=== PATIENT | female | born 1950 | race African-American/Black ===

== ENCOUNTER 2024-02-03 21:37 | Emergency (ER) | payer MEDICARE, OTHER, SELFPAY ==
[2024-02-03 22:24] LABS: Blood Urea Nitrogen 69 mg/dl (7-17); Calcium 8.2 mg/dl (8.4-10.2); Carbon Dioxide 19 mmol/L (22-30); Chloride 103 mmol/L (98-107); Glucose 111 mg/dl (70-99); Sodium 136 mmol/L (135-145); eGFR 3.46
--- NOTE | 2024-02-03 22:28 | ED.GENMED ---
History of Present Illness
General
Chief Complaint: Failure to Thrive
Source: patient
Exam Limitations: none
Time Seen by Provider: 02/03/24 21:51
Nursing documentation reviewed up to this point in time: agreed with
Travel History
Have you had any contact with someone who has COVID-19?: Unable to Answer
Do you have any symptoms of coronavirus? Fever > 100 degrees, chills, cough, shortness of breath, sore throat, loss of taste or smell, muscle aches, or headache?: Unable to Answer
History of Present Illness
History of Present Illness:
Pt with history of ESRD on HD (M,W,F), presents to ED from care home after she missed last 2 dialysis sessions. Pt denies fever. Denies sob. Denies nausea/vomiting. Denies loss of appetite. Denies abdominal pain. Pt denies having missed or
refused dialysis, but states that she was simply not taken to dialysis center.
Review of Systems
Review of Systems
Allergies reviewed?: Yes
All Other Systems: ROS reviewed and negative except as documented in HPI and ROS
Constitutional: Reports no symptoms
Respiratory: Reports no symptoms; Denies trouble breathing
Cardiac: Reports no symptoms
Musculoskeletal: Reports no symptoms
Skin: Reports no symptoms
Neurological: Reports no symptoms
Phy Exam
Physical Exam
Physical Exam:
Physical Exam
General: no apparent distress, not acutely ill. afebrile
Head: nc/at. eomi
Neck: supple. no meningeal signs.
Lungs: no acute respiratory distress. clear bilaterally
Abdomen: normal bowel sounds. not tender.
Neuro: alert and oriented. no focal neurological deficits
Skin: no rash
Psychiatric: well kept. interactive and cooperative
Extremities: no edema. no calf tenderness.
Course
Orders/Labs/Results
Orders:
Orders
02/03/24 22:04
BMP [Basic Metabolic Panel] Urgent
Abnormal Lab Results
02/03/24
22:04
Carbon Dioxide 19 L mmol/L
(22-30)
BUN 69 H mg/dl
(7-17)
Creatinine 10.6 H* mg/dL
(0.6-1.0)
Glucose 111 H mg/dl
(70-99)
Calcium 8.2 L mg/dl
(8.4-10.2)
02/03/24 21:59
02/03/24 22:04
Vital Signs
Initial and Last Documented VS:
Initial Vital Signs
Pulse Resp Pulse Ox
60 18 96
02/03/24 21:44 02/03/24 21:44 02/03/24 21:44
Last Documented Vital Signs
Pulse Resp Pulse Ox
60 18 96
02/03/24 21:44 02/03/24 21:44 02/03/24 21:44
MDM/Problems Addressed
MDM/Problems Addressed:
Potassium: 5.0
Patient remains afebrile, hemodynamically stable, without any evidence of volume overload. As such, do not feel the patient is in need of any acute dialysis session. Patient will be transferred back to care home for continual evaluation and
treatment, including potential dialysis tomorrow.
*Critical Care Note
Total Time (30-74mins, 75-104mins- exclusive of procedures): Not Applicable
ED Attending Note
-
Portions of this chart may have been created with voice recognition software.� Occasional wrong word or��sound alike� substitutions may have occurred due to the inherent limitations of voice recognition software.
Discharge Plan
Departure
Patient Disposition: Care Home/SNF
Date of Disposition: 02/03/24
Time of Disposition: 22:46
Discharge Problem:
Missed dialysis
Instructions: End-stage kidney disease (kidney failure)
Prescriptions:
No Action
atorvastatin 40 mg Tablet
40 mg PO HS
acetaminophen 325 mg Tablet
650 mg PO Q6H PRN (Reason: mild pain/temp>100.4)
cetirizine 10 mg Tablet
10 mg PO DAILY
citalopram 10 mg Tablet
5 mg PO DAILY
loperamide [Imodium A-D] 2 mg Tablet
2 mg PO Q12H PRN (Reason: diarrhea)
cyanocobalamin (vitamin B-12) 1,000 mcg Tablet
1,000 mcg PO QPM
amlodipine 5 mg Tablet
5 mg PO DAILY
magnesium hydroxide [Milk of Magnesia] 400 mg/5 mL Suspension
30 ml PO HS PRN (Reason: if no bm in 3 days)
bisacodyl 10 mg Suppository
10 mg [place] DAILY PRN (Reason: if no results for MOM)
aspirin 81 mg Tablet,Chewable
81 mg PO DAILY
ondansetron 4 mg Tablet,Disintegrating
4 mg PO Q6H PRN (Reason: nausea/vomiting)
calcium acetate(phosphat bind) 667 mg Capsule
667 mg PO MEALS
cholecalciferol (vitamin D3) 25 mcg (1,000 unit) Tablet
25 mcg PO QPM
Lokelma 5 gram Powder In Packet
5 g PO DAILY
Pepto-Bismol
30 ml PO Q12H PRN (Reason: indigestion/heartburn)
Activity Restrictions/Additional Instructions:
As discussed, you are being transferred back to nursing for continuation of treatment, including scheduled dialysis.
Interventions
Interventions:
*Risk Screen - Suicide Last Done: 02/03/24 21:46
*General Assessment Last Done: 02/03/24 21:46
*Neglect/Abuse Screening Last Done: 02/03/24 21:46
ED- Fall Risk Assessment Last Done: 02/03/24 23:43
*ED COVID-19 Vaccine History Last Done: 02/03/24 21:46
*Nursing Disposition Last Done: 02/04/24 01:32
Discharge Date and Time
Discharge Date/Time: 02/04/24 01:33
Print Language: BENGALI
== END 2024-02-04 01:33 ==
LOC: EMR 21:37
PROVIDERS: EMERGENCY PHYSICIAN Emergency Medicine; FAMILY PHYSICIAN Internal Medicine
DX: N18.6 End stage renal disease (principal); Z91.158 Patient's noncompliance with renal dialysis for other reason; Z99.2 Dependence on renal dialysis
CPT/HCPCS: 80048; 99283

== ENCOUNTER 2024-02-10 18:56 | Observation (INO) | payer MEDICARE, OTHER, SELFPAY ==
[2024-02-10 16:22] VITALS: BP 189/63
[2024-02-10 17:00] VITALS: BP 161/51
--- NOTE | 2024-02-10 17:31 | ED.GENMED ---
History of Present Illness
General
Chief Complaint: Failure to Thrive
Source: ambulance crew
Exam Limitations: none
Time Seen by Provider: 02/10/24 16:22
Nursing documentation reviewed up to this point in time: agreed with
History of Present Illness
History of Present Illness:
The patient is a 73-year-old female who arrives from [facility] by ambulance after she refused dialysis again. According to the nursing staff at [facility], the patient has now refused dialysis 4 times. However, the patient's
family would like her to get dialysis. The patient was evaluated in our emergency department a week ago for the same scenario. The patient is a vague historian. She is oriented to herself only. She appears agitated. She denies pain. I
personally called and spoke to the patient's son, Papito, who reports that he was expecting his mom to be hospitalized at [facility]. He expresses that he adamantly wants his mom dialyzed.
Past History
Past History
ED Past Medical History: CHF, HTN, Hypercholesterolemia, Renal failure and Other (Dementia)
ED Past Surgical History: Other
Social History
Tobacco: Other
Alcohol: Other
Drug: Other
Personal: Other
Living: correction
Employment: Other
Family History
Family History: Other
Review of Systems
Review of Systems
Allergies reviewed?: Yes
Unable to obtain full review of systems at this time due to: dementia
Other source history: family (Son, Papito) and correction
All Other Systems: Not applicable
Phy Exam
Physical Exam
Physical Exam:
Physical Exam
General: no apparent distress, not acutely ill
Neck: supple. no meningeal signs. normal psoterior pharynx
Heart: s1/s2 regular rate and rhythm, no murmur. equal radial pulses.
Lungs: no acute respiratory distress. clear bilaterally
Abdomen: normal bowel sounds. not tender. no CVAT
Neuro: Oriented to self only
Skin: no rash
Psychiatric: Barely interactive. Agitated
Extremities: no edema. no calf tenderness. negative homans. good distal pulses
Course
Orders/Labs/Results
Orders:
Orders
02/10/24 17:58
Complete Blood Count/With Diff Urgent
Comprehensive Metabolic Panel Urgent
02/10/24 18:28
Electrocardiogram (*1) Urgent
Reason for Study: Fatigue / Weakness
EKG- Treatment ONCE
02/10/24 18:40
Admit/Transfer Patient As Directed
Co-Sign Provider:
Level of Care: Observation services
Assign to:: Telemetry
Physician / Group: nasrin
Diagnosis: esrd
Reason for Telemetry: Arrhythmia
Date to Stop Telemetry: 02/13/24
Time to Stop Telemetry: 11:00
02/10/24 18:41
Code Status As Directed
Resuscitation Status: Full Code
02/10/24 18:43
Sodium Bicarbonate 50 meq IV NOW STA
02/13/24 11:00
DC Protocol for Telemetry ONCE
Abnormal Lab Results
02/10/24
17:58
WBC 3.2 L 10^3/uL
(4.8-10.8)
RBC 3.57 L 10^6/uL
(4.20-5.40)
Hgb 10.8 L g/dL
(12.0-16.0)
Hct 31.4 L %
(37.0-47.0)
RDW 15.6 H %
(11.5-14.5)
MPV 12.2 H fL
(7.4-10.4)
Absolute Lymphs (auto) 0.9 L 10^3/uL
(1.2-3.4)
Monocytes % 11.9 H %
(1.7-9.3)
Potassium 5.3 H mmol/L
(3.5-5.1)
Carbon Dioxide 10 L* mmol/L
(22-30)
BUN 127 H* mg/dl
(7-17)
Creatinine 19.7 H* mg/dL
(0.6-1.0)
02/10/24 17:58
02/10/24 17:58
Vital Signs
Initial and Last Documented VS:
Initial Vital Signs
Temp Pulse Resp Pulse Ox
97.5 F 61 15 98
02/10/24 16:20 02/10/24 16:20 02/10/24 16:20 02/10/24 16:20
Last Documented Vital Signs
Temp Pulse Resp BP Pulse Ox
97.5 F 65 23 161/51 98
02/10/24 16:20 02/10/24 18:00 02/10/24 18:00 02/10/24 17:00 02/10/24 16:20
MDM/Problems Addressed
Differential Diagnosis Includes:
Hyperkalemia, fluid overload due to noncompliance with dialysis, acidosis
MDM/Problems Addressed:
Patient presents with failure to comply with dialysis
Chronic conditions affecting care: Kidney disease
Acute Exacerbation and/or Progression of Chronic Illness: Kidney disease
*Radiology
Radiology exam reviewed: preliminary read by ED provider
*Pulse Oximetry
Patient hypoxic: no
*Coal Pulverizing Operator Interpretation
Rate: normal
Interpretation: normal
Rhythm: sinus
*Critical Care Note
Total Time (30-74mins, 75-104mins- exclusive of procedures): Not Applicable
Data Reviewed
Review of Other/Old Records Reveals: Labs (Carbon dioxide on 02/03/2024 was 19)
Source: family (Spoke to patient's son over the phone, Papito Kohli) and correction (Spoke to correction nurse)
Patient Management
Discussion with other providers: Hospitalist
Escalation/DeEscalation of care consider admission/obs:
Given patient has increased acidosis due to noncompliance with dialysis, decision made to admit the patient for likely dialysis. Nephrology and hospitalist made aware
ED Attending Note
-
Portions of this chart may have been created with voice recognition software.� Occasional wrong word or��sound alike� substitutions may have occurred due to the inherent limitations of voice recognition software.
Discharge Plan
Departure
Patient Disposition: Admit
Date of Disposition: 02/10/24
Time of Disposition: 18:27
Admit to: Med/Surg
Presentation/result/management discussed w/ accepting MD/DO: Hospitalist
Patient with high blood pressure during this ER visit?: Yes
Condition: Fair
Covid-19: Not Applicable
Discharge Problem:
Metabolic acidosis, Non-compliance with renal dialysis
Interventions
Interventions:
*Risk Screen - Suicide Last Done: 02/10/24 16:20
*General Assessment Last Done: 02/10/24 16:20
ED- Fall Risk Assessment Last Done: 02/10/24 17:25
[2024-02-10 18:04] LABS: % Basophils 1.3 % (0-2); % Eosinophils 1.6 % (0-6); % Immature Granulocytes 0.3 % (0-0.5); % Lymphocytes 26.7 % (20.5-51.1); % Monocytes 11.9 % (1.7-9.3); % Neutrophils 58.2 % (42.2-75.2); Absolute Eosinophils 0.1 10^3/uL (0-0.7); Absolute Lymphocytes 0.9 10^3/uL (1.2-3.4); Absolute Monocytes 0.4 10^3/uL (0.1-0.6); Absolute Neutrophils 1.9 10^3/uL (1.4-6.5); Hematocrit 31.4 % (37.0-47.0); Hemoglobin 10.8 g/dL (12.0-16.0); Mean Corp Hgb Conc. 34.4 g/dL (33.0-37.0); Mean Corpuscular Hgb 30.3 pg (27.0-31.0); Mean Platelet Volume 12.2 fL (7.4-10.4); Nucleated Red Blood Cells % 0 %; Platelet Count 178 10^3/uL (130-400); Red Blood Cell Count 3.57 10^6/uL (4.20-5.40); Red Cell Dist. Width 15.6 % (11.5-14.5); White Blood Cell Count 3.2 10^3/uL (4.8-10.8)
[2024-02-10 18:24] LABS: ALT (SGPT) 13 U/L (0-35); AST (SGOT) 19 U/L (14-36); Albumin 4.1 g/dl (3.5-5.0); Alkaline Phosphatase 80 U/L (38-126); Calcium 8.9 mg/dl (8.4-10.2); Carbon Dioxide 10 mmol/L (22-30); Chloride 107 mmol/L (98-107); Glucose 73 mg/dl (70-99); Potassium 5.3 mmol/L (3.5-5.1); Sodium 142 mmol/L (135-145); Total Bilirubin 0.6 mg/dl (0.2-1.3); Total Protein 6.4 g/dl (6.3-8.2)
[2024-02-10 18:36] LABS: Blood Urea Nitrogen 127 mg/dl (7-17); eGFR 1.64
--- NOTE | 2024-02-10 18:43 | HPS.HSE ---
Family Physician
-
Family Physician: Preston Cain
Chief Complaint
-
missed dialysis
History of Present Illness
73-year-old female past medical history of ESRD on hemodialysis, anemia, dementia, hypertension, presenting from [facility] for dialysis. She has refused dialysis and missed her last 4 dialysis sessions. Family adamantly wants her to get
dialyzed.
Patient denies any complaints. She denies any chest pain, shortness of breath, lower extremity edema, nausea or vomiting or diarrhea.
When asked why she has not been receiving dialysis she states that she has been going to dialysis. She reports that she has been taking her medications although history unreliable.
She denies smoking or alcohol use.
Medical History
Past Medical History
Past Medical History: Reports Other (ESRD on hemodialysis, anemia, dementia, hypertension,)
Past Surgical History: Reports None
Social History
Tobacco: Non-smoker
Alcohol: None
Drug: None
Family History
Family History: Not pertinent
Allergies / Home Medications
Allergies reflects when Allergies were last updated in [employer].
Home Medications with original date entered in [employer]
Allergy/Medication List:
Home Medications
Pepto-Bismol 30 ml PO Q12H PRN indigestion/heartburn 02/03/24
acetaminophen 325 mg tablet 650 mg PO Q6H PRN mild pain/temp>100.4 02/03/24
amlodipine 5 mg tablet 5 mg PO DAILY 02/03/24
aspirin 81 mg chewable tablet 81 mg PO DAILY 02/03/24
atorvastatin 40 mg tablet 40 mg PO HS 02/03/24
bisacodyl 10 mg rectal suppository 10 mg [place] DAILY PRN if no results for MOM 02/03/24
calcium acetate(phosphat bind) 667 mg capsule 667 mg PO MEALS 02/03/24
cetirizine 10 mg tablet 10 mg PO DAILY 02/03/24
cholecalciferol (vitamin D3) 25 mcg (1,000 unit) tablet 25 mcg PO QPM 02/03/24
citalopram 10 mg tablet 5 mg PO DAILY 02/03/24
cyanocobalamin (vitamin B-12) 1,000 mcg tablet 1,000 mcg PO QPM 02/03/24
loperamide 2 mg tablet (Imodium A-D) 2 mg PO Q12H PRN diarrhea 02/03/24
magnesium hydroxide 400 mg/5 mL oral suspension (Milk of Magnesia) 30 ml PO HS PRN if no bm in 3 days 02/03/24
ondansetron 4 mg disintegrating tablet 4 mg PO Q6H PRN nausea/vomiting 02/03/24
sodium zirconium cyclosilicate 5 gram oral powder packet (Lokelma) 5 g PO DAILY 02/03/24
omeprazole 20 mg tablet,delayed release 20 mg PO DAILY 02/10/24
Review of Systems
-
History Source: Patient
A 12 point ROS was completed and negative except as noted: Yes
Constitutional: Reports No Symptoms
EENT: Reports No Symptoms
Respiratory: Reports No Symptoms
Cardiac: Reports No Symptoms
Abdomen/GI: Reports No Symptoms
: Reports No Symptoms
Musculoskeletal: Reports No Symptoms
Skin: Reports No Symptoms
Neurological: Reports No Symptoms
Endocrine: Reports No Symptoms
Hematologic/Lymphatic: Reports No Symptoms
Psych: Reports No Symptoms
Physical Exam
Vital Signs
Vital Signs
Temp Pulse Resp BP Pulse Ox
97.5 F 65 23 161/51 98
02/10/24 16:20 02/10/24 18:00 02/10/24 18:00 02/10/24 17:00 02/10/24 16:20
Physical Exam
General: Well Developed, Well Nourished and No Apparent Distress
HEENT: NormoCephalic, Moist mucous membranes and Atraumatic
Respiratory: Clear
Cardiac: S1/S2 and Regular Rhythm; No Murmur or Rub
GI: Soft, Non Tender, Non Distended and Normal Bowel Sounds; No Organomegaly
Rectal: Deferred by Provider
Musculoskeletal: No Clubbing, No Cyanosis and No Edema
Skin: No Rash
Neuro: Nonfocal/grossly intact
Laboratory Results
-
02/10/24 17:58
02/10/24 17:58
Laboratory Results
Total Bilirubin 0.6 mg/dl (0.2-1.3) 02/10/24 17:58
AST 19 U/L (14-36) 02/10/24 17:58
ALT 13 U/L (0-35) 02/10/24 17:58
Alkaline Phosphatase 80 U/L (38-126) 02/10/24 17:58
Data Reviewed
-
Lab Data: Labs Reviewed by me
Old Records: Reviewed
Impression/Plan
-
IMPRESSION:
PLAN:
# Anion gap metabolic acidosis secondary to refusal of dialysis sessions
# ESRD on hemodialysis
# Mild hyperkalemia
-Does not appear volume overloaded on examination, asymptomatic
-Bicarb of 10
-Bicarb push 50 meq given
-Nephrology will try for dialysis tomorrow if patient agreeable
-Continue calcium
-Continue Lokelma
Chronic anemia renal disease
-Hemoglobin 10.8
Dementia
-Continue citalopram
Essential hypertension
-Continue amlodipine
-Continue prophylactic aspirin, statin
GERD
-Continue omeprazole
Full code
DVT prophylaxis�heparin
Renal diet
[2024-02-10] MEDS: SODIUM BICARBONATE 50 MEQ IV (18:53)
[2024-02-10] MEDS: ATIVAN 1 MG IV (19:11)
[2024-02-10 20:05] VITALS: BP 168/60; BMI 19.7
[2024-02-10] MEDS: HEPARIN 5000 UNITS SC (21:20)
--- NOTE | 2024-02-10 21:30 | PTCARENOTE ---
Pt was admitted to floor from ED. Pt is nonverbal at present, does not answer any questions. Pt is in B/L soft limb restraints. VSS. SB on the monitor. Pt is calm at present. Will continue with ongoing plan of care.
[2024-02-10 23:31] VITALS: BP 167/62
[2024-02-11 03:27] VITALS: BP 171/63
[2024-02-11 06:00] VITALS: BMI 19.7
--- NOTE | 2024-02-11 06:35 | PTCARENOTE ---
Pt awake yelling, confused, pulling at B/L wrist restraints, tele leads and monitor and managed to pull out IV site. Pt continuing to yell and attempting to hit staff. SALTY Lundy notified and order received for IM Ativan. After repositioning
pt and adjusting restraints and tele monitor pt is now asleep.
[2024-02-11 07:09] VITALS: BP 165/59
[2024-02-11 07:40] LABS: % Basophils 1.6 % (0-2); % Eosinophils 3.1 % (0-6); % Immature Granulocytes 0.4 % (0-0.5); % Lymphocytes 25.6 % (20.5-51.1); % Monocytes 9.3 % (1.7-9.3); Absolute Eosinophils 0.1 10^3/uL (0-0.7); Absolute Lymphocytes 0.7 10^3/uL (1.2-3.4); Absolute Monocytes 0.2 10^3/uL (0.1-0.6); Absolute Neutrophils 1.6 10^3/uL (1.4-6.5); Hematocrit 29.2 % (37.0-47.0); Hemoglobin 10.1 g/dL (12.0-16.0); Mean Corp Hgb Conc. 34.6 g/dL (33.0-37.0); Mean Corpuscular Hgb 30.3 pg (27.0-31.0); Mean Corpuscular Volume 87.7 fL (81.0-99.0); Mean Platelet Volume 12.4 fL (7.4-10.4); Nucleated Red Blood Cells % 0 %; Platelet Count 172 10^3/uL (130-400); Red Blood Cell Count 3.33 10^6/uL (4.20-5.40); Red Cell Dist. Width 15.6 % (11.5-14.5); White Blood Cell Count 2.6 10^3/uL (4.8-10.8)
[2024-02-11 08:22] LABS: ALT (SGPT) 12 U/L (0-35); AST (SGOT) 19 U/L (14-36); Albumin 3.7 g/dl (3.5-5.0); Alkaline Phosphatase 72 U/L (38-126); Blood Urea Nitrogen 130 mg/dl (7-17); Calcium 8.6 mg/dl (8.4-10.2); Carbon Dioxide 12 mmol/L (22-30); Chloride 108 mmol/L (98-107); Estimated Creatinine Clearance 2 ml/min; Glucose 49 mg/dl (70-99); Potassium 5.2 mmol/L (3.5-5.1); Sodium 144 mmol/L (135-145); Total Bilirubin 0.6 mg/dl (0.2-1.3); Total Protein 5.9 g/dl (6.3-8.2); eGFR 1.57
[2024-02-11] MEDS: DEXTROSE 50% SYRINGE 25 GRAMS IV (08:30)
--- NOTE | 2024-02-11 08:30 | PTCARENOTE ---
0830 LAB glucose 49. Physician notified, D50 25G iv given. Patient combative, spitting, screaming. Two staff were needed to hold patient's arm for IV D50 to be administered.
--- NOTE | 2024-02-11 09:00 | PTCARENOTE ---
Patient refusing all PO meds, patient refusing to eat. Patient only wants water.
--- NOTE | 2024-02-11 10:37 | W.PN.HOSP.TC ---
Today's Communication/Plan
-
Await son to call back. Pateint is not eating , taking meds, Letting mew touch her or Do HD
Assessment / Plan
Assessment / Plan
68-year-old female with missed dialysis. She refused dialysis and missed 4 sessions.
She has been refusing to take medicines eat or drink. She also does not want to be touched.
She asks me to 'go away' and swats you away.
Does not converse or make eye contact.
No facial droop noted
Let me touch her.
moving all extremities.
Does not follow directions
# Missed hemodialysis when patient performs
Anion gap metabolic acidosis secondary to above with mild hypokalemia
Bicarb given
Nephrology consulted for dialysis
Continue Lokelma
# Chronic anemia secondary to CKD
# Mild leukopenia
# Advanced dementia-Check CT Brain
# Hypertension-continue amlodipine
# Hyperlipidemia-continue statin
# GERD-continue PPI IV
# Anxiety and depression-citalopram
# DVT prophylaxis-subcutaneous heparin
# CODE STATUS-full code
Discussed with nephrology. Patient does not let dialysis nurse to dialysis. It can be dangerous if she bleeds.
I have called and left a message for patient's son to call back.
Discussed with nursing.
Anticipated Discharge: > 48 hours
Subjective/Interval History
-
Date of Service: February 11, 2024
Objective Data
-
Labs:
Laboratory Results
02/11/24
06:45
WBC 2.6 L
Hgb 10.1 L
Hct 29.2 L
Plt Count 172
Sodium 144
Potassium 5.2 H
Chloride 108 H
Carbon Dioxide 12 L*
BUN 130 H*
Creatinine 20.5 H*
Glucose 49 L*
Calcium 8.6
Total Bilirubin 0.6
AST 19
ALT 12
Alkaline Phosphatase 72
Vital Signs:
Vital Signs
Temp Pulse Resp BP Pulse Ox
97.3 F 59 17 171/63 96
02/11/24 03:27 02/11/24 03:27 02/11/24 03:27 02/11/24 03:27 02/11/24 03:27
I&O
02/10/24 02/11/24 02/12/24
06:59 06:59 06:59
Intake Total 120 / 120
Balance 120 / 120
[2024-02-11] MEDS: HEPARIN 5000 UNITS SC (10:50)
[2024-02-11 10:54] LABS: Glucose - Point of Care 78 mg/dl (70-99)
[2024-02-11 11:11] VITALS: BP 156/84
--- NOTE | 2024-02-11 11:58 | W.PN.UPDATE ---
Addendum entered and electronically signed by Cherri Sylvester MD 02/11/24 12:01:
Nephrology saw patient after me and discussed with the son he wants hospice. I will consult hospice. Cancel CAT scan
Original Note:
Update Note
Progress Note Update
met with son at bed side.
Reviewed about patient refusing treatments, to eat and also dialysis.
He stated that he understands that. He also told the patient that she will if she keeps refusing about.
CODE STATUS addressed and he made her a DNR
total time spent over 55 min
--- NOTE | 2024-02-11 12:00 | PTCARENOTE ---
Patient's son at bedside@ 1130. Patient and son yelling at each other. Son is now sitting outside of the patient's room, Physicians notified. Patient @ 1200 became combative, removed restraints by bending over and using her teeth. Patient removed
tele, threw it at nurse and then used the tele wires to hit staff. Patient climbed out of bed, kicking and spitting. It took four staff members to lift patient back into bed and replace restraints. IV order for Haldol obtained, but patient used her
teeth to rip out her IV from her left upper arm! Medsitter requested and bed alarm maintained. Patient's son left.
--- NOTE | 2024-02-11 13:24 | CM ---
Addendum entered by Geri Rodrigez 02/11/24 13:53:
[employer] letter provided to patient and son not signed.
Original Note:
manager of tax reviewed patient's chart and met with patient and son, patient with restraints and medsitter, call placed to admissions at [facility] to see how long patient has been at facility and message left. Per patient's son patient was receiving HD
at [facility] but lately patient has been refusing, per nursing patient is not eating, taking medications, patient was placed in restraints. manager of tax received a consult for hospice, case management associate spoke with patient's son and reviewed hospice
options and he has selected [facility], referral sent to [facility].
PCP: Dr. Cain
Plan; Referral sent to [facility] and message left with admissions at [facility] to discuss patient's previous level of functioning.
--- NOTE | 2024-02-11 14:26 | HOSPNOTE ---
Referral received. Called and spoke to patients son Papito. He was under the impression that patient would be admitted inpatient hospice. He expressed that he did not want patient returning to [facility]. He if anything wanted patient to go somewhere closer
to her family and hometown which is [place] if family who is coming to visit this evening agrees. Discussed with attending and CM. Will be difficult to find facility accepting of patient with behaviors of agitation and currently in restraints. Will
reassess tomorrow for the eligibility of inpatient hospice and then discuss further with son. CM and Attending updated.
--- NOTE | 2024-02-11 14:27 | W.CON.NEPH ---
Consultation
-
Date/Time Consultation Requested: 02/10/2024 19:43PM
Date/Time Consultation Performed: 02/11/2024 2:31PM
Requesting Provider: Benjamin Sullivan
Performing Provider: Manda Coleman
Reason for Consultation: ESRD on HD
Medical History
-
Chief Complaint: ESRD on HD
History of Present Illness:
Ms. Kohli is a 73YOF with PMH of ESRD on HD, anemia, dementia, HTN who presents from [facility] in the setting of missed dialysis. For hypertension, she is maintained on amlodipine. She does have problems with nausea for with she takes Lokelma.
The patient has been refusing dialysis for the past 4 sessions but family was insistent that she come to the hospital for dialysis. Today, she continues to refuse dialysis and was aggressive with bedside nurse as well as myself. The patient did spit
on me when I went to discuss dialysis toay.
Past Medical History
ESRD on hemodialysis, anemia, dementia, hypertension
Past Surgical History: None
Social History
Tobacco: Non-Smoker
Alcohol: None
Drug: None
Living: Jail
Family History
Family History: Not Pertinent
Allergies / Home Medications
Allergy/AdvReac Type Severity Reaction Status Date / Time
amlodipine Allergy Unknown Verified 02/10/24 18:50
�Medication �Instructions �Recorded �Confirmed �Type
Pepto-Bismol 30 ml PO Q12H PRN 02/03/24 02/10/24 History
indigestion/heartburn
acetaminophen 325 mg tablet 650 mg PO Q6H PRN mild 02/03/24 02/10/24 History
pain/temp>100.4
amlodipine 5 mg tablet 5 mg PO DAILY 02/03/24 02/10/24 History
aspirin 81 mg chewable tablet 81 mg PO DAILY 02/03/24 02/10/24 History
atorvastatin 40 mg tablet 40 mg PO HS 02/03/24 02/10/24 History
bisacodyl 10 mg rectal suppository 10 mg DE DAILY PRN if no results 02/03/24 02/10/24 History
for MOM
calcium acetate(phosphat bind) 667 667 mg PO MEALS 02/03/24 02/10/24 History
mg capsule
cetirizine 10 mg tablet 10 mg PO DAILY 02/03/24 02/10/24 History
cholecalciferol (vitamin D3) 25 25 mcg PO QPM 02/03/24 02/10/24 History
mcg (1,000 unit) tablet
citalopram 10 mg tablet 5 mg PO DAILY 02/03/24 02/10/24 History
cyanocobalamin (vitamin B-12) 1,000 mcg PO QPM 02/03/24 02/10/24 History
1,000 mcg tablet
loperamide 2 mg tablet (Imodium 2 mg PO Q12H PRN diarrhea 02/03/24 02/10/24 History
A-D)
magnesium hydroxide 400 mg/5 mL 30 ml PO HS PRN if no bm in 3 days 02/03/24 02/10/24 History
oral suspension (Milk of Magnesia)
ondansetron 4 mg disintegrating 4 mg PO Q6H PRN nausea/vomiting 02/03/24 02/10/24 History
tablet
sodium zirconium cyclosilicate 5 5 g PO DAILY 02/03/24 02/10/24 History
gram oral powder packet (Lokelma)
omeprazole 20 mg tablet,delayed 20 mg PO DAILY 02/10/24 02/10/24 History
release
Review of Systems
-
Unable to obtain full review of systems at this time due to: Dementia
History Source: Patient and Family
All other systems: Negative unless noted
Constitutional: Fatigue
Physical Exam
Vital Signs
Vital Signs
Temp Pulse Resp BP Pulse Ox
97.6 F 65 20 156/84 93
02/11/24 07:09 02/11/24 11:11 02/11/24 11:11 02/11/24 11:11 02/11/24 11:11
Lab Results
WBC 2.6 10^3/uL (4.8-10.8) L 02/11/24 06:45
RBC 3.33 10^6/uL (4.20-5.40) L 02/11/24 06:45
Hgb 10.1 g/dL (12.0-16.0) L 02/11/24 06:45
Hct 29.2 % (37.0-47.0) L 02/11/24 06:45
Plt Count 172 10^3/uL (130-400) 02/11/24 06:45
Sodium 144 mmol/L (135-145) 02/11/24 06:45
Potassium 5.2 mmol/L (3.5-5.1) H 02/11/24 06:45
Chloride 108 mmol/L (98-107) H 02/11/24 06:45
Carbon Dioxide 12 mmol/L (22-30) L* 02/11/24 06:45
BUN 130 mg/dl (7-17) H* 02/11/24 06:45
Creatinine 20.5 mg/dL (0.6-1.0) H* 02/11/24 06:45
eGFR 1.57 02/11/24 06:45
Glucose 49 mg/dl (70-99) L* 02/11/24 06:45
Calcium 8.6 mg/dl (8.4-10.2) 02/11/24 06:45
Albumin 3.7 g/dl (3.5-5.0) 02/11/24 06:45
Physical Exam
General: Awake and Other (no oriented to time or place)
HEENT: PERRL, EOMI, Anicteric, Conjunctivae Clear, Ear/Nose Intact, Hearing Normal, Oropharynx Clear/Moist and Facial Symmetry
Respiratory: Nonlabored Respirations
Cardiac: No Edema
Breast: Deferred by me
Abdomen: Soft and Nontender
Rectal: Deferred by Provider
Musculoskeletal: No Clubbing, No Cyanosis and No Edema
Skin: Other (rash noted on some joints)
Neuro: Nonfocal/Grossly Intact
Hematologic/Lymphatic: No Cervical Lymphadenopathy
Psych: Mood/afflect pleasant
Vascular Access: AVF
Data Reviewed
-
Labs: Labs Reviewed by me, Discussed with Physician, Discussed with Nurse and Discussed with Family
Old Records: Reviewed
Assessment/Plan
-
ESRD on HD (currently refusing)
AGMA
Mild hyperK
Plan:
- discussed with family. i reiterated that it would be unsafe to compelte dialysis on a combative patient, particularly since we would be placing needles for access. she is at extremely high risk of bleeding. at this time, they understand the risks
and decided to pursue hospice since the patient no longer wants dialysis
- fortunately, volume status seesm stable
- noted to have severe refractory acidosis, continue to monitor
- mild hyperK noted, okay for rosyca to continue
- hospice consult
[2024-02-11] MEDS: NORVASC PO (14:43)
[2024-02-11] MEDS: PHOSLO PO ×2 (14:43)
[2024-02-11] MEDS: NORVASC 5 MG PO (16:59)
[2024-02-11 17:00] VITALS: BP 171/51
[2024-02-11] MEDS: PHOSLO 667 MG PO (17:00)
[2024-02-11] MEDS: TYLENOL 650 MG PO (17:00)
[2024-02-11] MEDS: VITAMIN B-12 1000 MCG PO (17:00)
[2024-02-11] MEDS: VITAMIN D3 (cholecalciferol) 25 MCG PO (17:00)
[2024-02-11 17:10] LABS: Glucose - Point of Care 64 mg/dl (70-99)
[2024-02-11 18:04] LABS: Glucose - Point of Care 72 mg/dl (70-99)
[2024-02-11] MEDS: HEPARIN SC (19:38)
--- NOTE | 2024-02-12 00:19 | PTCARENOTE ---
Pt agitated, refusing vital signs, medication and food or drink. Was able to ambulate to bathroom with assistance. Bed alarm intact with soft limb restraints and med sitter maintained.
[2024-02-12 06:00] VITALS: BMI 19.7
--- NOTE | 2024-02-12 06:11 | W.PN.HOSP.TC ---
Today's Communication/Plan
-
start comfort measures
discharge to inpatient hospice
Assessment / Plan
Assessment / Plan
Physical Exam
Refusing examination
68-year-old female with missed dialysis. She refused dialysis and missed 4 sessions. Refusing medication and food.
# Missed hemodialysis when patient performs
Anion gap metabolic acidosis secondary to above with mild hypokalemia
Bicarb given
Nephrology consult appreciated not safe to continue with dialysis patient uncooperative agitation risk of bleeding high
Continued Lokelma however patient refusing medications
# Chronic anemia secondary to CKD
# Mild leukopenia
# Advanced dementia
# Hypertension-continued amlodipine, patient refused
# Hyperlipidemia-continue statin, patient refused
# GERD- protonix continued, patient refused
# Anxiety and depression-citalopram, patient refused
# CODE STATUS- DNR as per sang Cobos. Patient confused likely terminal delirium does not have capacity to make her own medical decisions at this time.
02/11 Goals of Care: discussed with hospice and patient's son MALATHI Cobos regarding poor prognosis, likely terminal delirium, patient likely to deteriorate soon refusing dialysis, meds, and food. Patient appropriate for [facility] hospice, patient's son
Papito in agreement with pursuing plans to sign patient on to [facility] hospice by 2pm today. Patient' son also in agreement with pursuing comfort care and consented to start prior to signing. Sang SERVIN aware, as part of comfort care measures, all
medications/treatments/tests(including accucheks) that may prolong patient's life, or simply do not add to quality of life, would be discontinued in favor of measures/treatments/medications to maximize patient's quality of life in her remaining
time. Care updated to comfort measures as per sang SERVIN's wishes. Patient herself confused/agitated does not have capacity to make medical decisions at this time.
I spent a total of 50 minutes with the patient or on the floor. More than 50% of this time involved counseling and coordination of care.
Anticipated Discharge: Today
Subjective/Interval History
-
Date of Service: February 12, 2024
No acute distress resting comfortably in bed sleeping at time of evaluation. Day's events notable for confusion agitation refusing to eat or take oral medications.
Objective Data
-
Vital Signs:
Vital Signs
Temp Pulse Resp BP Pulse Ox
97.6 F 63 16 171/51 96
02/11/24 07:09 02/11/24 17:00 02/11/24 17:00 02/11/24 17:00 02/11/24 17:00
I&O
02/10/24 02/11/24 02/12/24
06:59 06:59 06:59
Intake Total 120 / 120
Balance 120 / 120
[2024-02-12 07:13] VITALS: BP 123/75
[2024-02-12 09:07] LABS: Glucose - Point of Care 47 mg/dl (70-99)
--- NOTE | 2024-02-12 10:19 | HOSPNOTE ---
Patient will be admitted today as inpatient hospice. Patient has refused dialysis, refused food and water. Patient is extremely agitated and will need to remain inpatient for the management of agitation that could not be managed in the outpatient
setting. Son will meet at hospice at 2 pm to sign consents. Attending, CM, and primary nurse aware. Admissions notified and requested a bed on [address] as well.
[2024-02-12] MEDS: HEPARIN SC (10:31)
[2024-02-12] MEDS: NORVASC PO (10:32)
[2024-02-12] MEDS: PHOSLO PO (10:32)
--- NOTE | 2024-02-12 10:38 | W.PN.UPDATE ---
Update Note
Progress Note Update
refusing meds, dialysis, PO meds
Patient confused agitated pulling out IV's
Discussed with Hospice, patient appropriate for GIP, patient's son Papito in agreement scheduled to meet with hospice nurse to sign papers 2PM
Discussed with patient's son, in agreement with starting comfort measures prior to signing. Care updated accordingly.
--- NOTE | 2024-02-12 12:11 | CM ---
Hospice meeting took place and patient's son has agreed to hospice, plan is for inpatient hospice with [facility], plan to sign on at 2pm today.
Plan; GIP hospice with [facility], patient to transfer to [address] [place] [address].
--- NOTE | 2024-02-12 12:13 | W.PN.UPDATE ---
Update Note
Progress Note Update
Patient is now on comfort care
Nephrology will sign off
Please call us back if any further concerns.
[2024-02-12] MEDS: HALDOL 1 MG IM (13:04)
--- NOTE | 2024-02-12 13:07 | PTCARENOTE ---
Patient climbing OOb. RN ambulated patient to bathroom. Patient is unsteady and is screaming at RN to leave the bathroom. Patient is soiled with BM and trying to clean patient. Patient started hitting and scratching RN. Patient assisted back to bed
with assist x2, restraints in place, bed alarm and med sitter. Patient continues to scream and trying to untie restraints, IM Haldol given for severe agitation.
--- NOTE | 2024-02-12 14:15 | PTCARENOTE ---
Patient continues to scream and become violent when staff try to reposition her or preform care. IV placed in left hand-Ativan Iv given @ 1442.
[2024-02-12] MEDS: ATIVAN 0.5 MG IV (14:42)
[2024-02-12 15:00] VITALS: BP 159/61
--- NOTE | 2024-02-12 15:28 | W.DCSUMMARY ---
Discharge Summary
Discharge Data
Date of Admission: 02/10/24
Date of Discharge: 02/12/24
-
Pending Results: No
Hospital Course
73-year-old female past medical history of ESRD on hemodialysis, anemia, dementia, hypertension, hyperlipidemia, GERD, Anxiety/Depression presented from [facility] for dialysis. She had refused dialysis and missed her last 4 dialysis sessions.
Anion gap metabolic acidosis with mild hypokalemia, patient was confused agitated refusing physical exam, meds, food and pulling out her IV's. Nephrology evaluated and assessed pt not safe to continue with dialysis given uncooperative behavior,
agitated, at high risk of bleeding. Patient confused does not have capacity to make her own medical decisions. Goals of Care were discussed with hospice and patient's son MALATHI Cobos. Poor prognosis, likely terminal delirium, patient likely to
deteriorate soon with persistent refusal dialysis, meds, and food/water. Appropriate for GIP hospice, patient's son Papito in agreement with hospice, code status change to DNR, and switch to comfort care measures. Jeffrey SERVIN aware, as part of comfort
care measures, all medications/treatments/tests(including accucheks) that may prolong patient's life, or simply do not add to quality of life, would be discontinued in favor of measures/treatments/medications to maximize patient's quality of life in
her remaining time. As per jeffrey SERVIN's wishes, care was updated to comfort and patient was subsequently discharged to inpatient hospice.
Discharge Plan
-
Patient Disposition: Hospice - Inpatient DH
Discharge Orders:
Discharge Patient (As Directed); Ordered 02/12/24
Ordered By: Kevin Moody
Discharge Date and Time
Discharge Date/Time: 02/12/24 16:14
Print Language: JAPANESE
== END 2024-02-12 16:14 | disposition hospice, inpatient (51) ==
LOC: 4 WEST ACU 18:56
PROVIDERS: ADMITTING PHYSICIAN Hospitalist; ATTENDING PHYSICIAN Internal Medicine; CONSULT PHYSICIAN Student in an Organized Health Care Education/Training Program; EMERGENCY PHYSICIAN Emergency Medicine; FAMILY PHYSICIAN Internal Medicine
DX: R62.7 Adult failure to thrive (principal); Z91.158 Patient's noncompliance with renal dialysis for other reason; Z99.2 Dependence on renal dialysis; I12.0 Hypertensive chronic kidney disease with stage 5 chronic kidney disease or end stage renal disease; I50.9 Heart failure, unspecified; F03.90 Unspecified dementia, unspecified severity, without behavioral disturbance, psychotic disturbance, mood disturbance, and anxiety; N18.6 End stage renal disease; Z51.5 Encounter for palliative care; E87.5 Hyperkalemia; E87.20 Acidosis, unspecified; E78.00 Pure hypercholesterolemia, unspecified; D64.9 Anemia, unspecified; K21.9 Gastro-esophageal reflux disease without esophagitis; R11.0 Nausea; E87.6 Hypokalemia; E78.5 Hyperlipidemia, unspecified; D72.819 Decreased white blood cell count, unspecified; F41.9 Anxiety disorder, unspecified; F32.A Depression, unspecified; Z66 Do not resuscitate
CPT/HCPCS: 80053; 82962; 85025; 87070; 96374; 99285; G0378

== ENCOUNTER 2024-02-12 16:20 | Inpatient (IN) | payer OTHER, SELFPAY ==
--- NOTE | 2024-02-12 16:38 | HPS.HSE ---
Family Physician
-
Family Physician: NOT KNOW UNKNOWN - PT DOES
Chief Complaint
-
Confusion/agitation
History of Present Illness
73-year-old female past medical history of ESRD on hemodialysis, anemia, dementia, hypertension, hyperlipidemia, GERD, Anxiety/Depression presented from [facility] for dialysis. She had refused dialysis and missed her last 4 dialysis sessions.
Anion gap metabolic acidosis with mild hypokalemia, patient was confused agitated refusing physical exam, meds, food and pulling out her IV's. Nephrology evaluated and assessed pt not safe to continue with dialysis given uncooperative behavior,
agitated, at high risk of bleeding. Patient confused does not have capacity to make her own medical decisions. Goals of Care were discussed with hospice and patient's son MALATHI Cobos. Poor prognosis, likely terminal delirium, patient likely to
deteriorate soon with persistent refusal dialysis, meds, and food/water. Appropriate for GIP hospice, patient's son Papito in agreement with hospice, code status change to DNR, and switch to comfort care measures. Jeffrey SERVIN aware, as part of comfort
care measures, all medications/treatments/tests(including accucheks) that may prolong patient's life, or simply do not add to quality of life, would be discontinued in favor of measures/treatments/medications to maximize patient's quality of life in
her remaining time. As per jeffrey SERVIN's wishes, care was updated to comfort and patient was subsequently discharged to inpatient hospice.
Medical History
Past Medical History
Past Medical History: Reports Other (as above)
Past Surgical History: Reports Other (as above)
Social History
Tobacco: Non-smoker
Alcohol: None
Drug: None
Living: Alf
Family History
Family History: Not pertinent and Unable to Obtain
Allergies / Home Medications
Allergies reflects when Allergies were last updated in [facility].
Home Medications with original date entered in [facility]
Allergy/Medication List:
Allergies
Allergy/AdvReac Type Severity Reaction Status Date / Time
amlodipine Allergy Unknown Verified 02/10/24 18:50
Home Medications
Pepto-Bismol 30 ml PO Q12H PRN indigestion/heartburn 02/03/24
acetaminophen 325 mg tablet 650 mg PO Q6H PRN mild pain/temp>100.4 02/03/24
amlodipine 5 mg tablet 5 mg PO DAILY 02/03/24
aspirin 81 mg chewable tablet 81 mg PO DAILY 02/03/24
atorvastatin 40 mg tablet 40 mg PO HS 02/03/24
bisacodyl 10 mg rectal suppository 10 mg NV DAILY PRN if no results for MOM 02/03/24
calcium acetate(phosphat bind) 667 mg capsule 667 mg PO MEALS 02/03/24
cetirizine 10 mg tablet 10 mg PO DAILY 02/03/24
cholecalciferol (vitamin D3) 25 mcg (1,000 unit) tablet 25 mcg PO QPM 02/03/24
citalopram 10 mg tablet 5 mg PO DAILY 02/03/24
cyanocobalamin (vitamin B-12) 1,000 mcg tablet 1,000 mcg PO QPM 02/03/24
loperamide 2 mg tablet (Imodium A-D) 2 mg PO Q12H PRN diarrhea 02/03/24
magnesium hydroxide 400 mg/5 mL oral suspension (Milk of Magnesia) 30 ml PO HS PRN if no bm in 3 days 02/03/24
ondansetron 4 mg disintegrating tablet 4 mg PO Q6H PRN nausea/vomiting 02/03/24
sodium zirconium cyclosilicate 5 gram oral powder packet (Lokelma) 5 g PO DAILY 02/03/24
omeprazole 20 mg tablet,delayed release 20 mg PO DAILY 02/10/24
Review of Systems
-
Unable to obtain full review of systems at this time due to: Dementia
Physical Exam
Physical Exam
General: Other (Patient refusing physical exam. Unable to obtain)
Impression/Plan
-
Patient confused agitated refusing physical exam
IMPRESSION:
HPI:73-year-old female past medical history of ESRD on hemodialysis, anemia, dementia, hypertension, hyperlipidemia, GERD, Anxiety/Depression presented from [facility] for dialysis. She had refused dialysis and missed her last 4 dialysis
sessions. Anion gap metabolic acidosis with mild hypokalemia, patient was confused agitated refusing physical exam, meds, food and pulling out her IV's. Nephrology evaluated and assessed pt not safe to continue with dialysis given uncooperative
behavior, agitated, at high risk of bleeding. Patient confused does not have capacity to make her own medical decisions. Goals of Care were discussed with hospice and patient's son MALATHI Cobos. Poor prognosis, likely terminal delirium, patient
likely to deteriorate soon with persistent refusal dialysis, meds, and food/water. Appropriate for GIP hospice, patient's son Papito in agreement with hospice, code status change to DNR, and switch to comfort care measures. Jeffrey SERVIN aware, as part
of comfort care measures, all medications/treatments/tests(including accucheks) that may prolong patient's life, or simply do not add to quality of life, would be discontinued in favor of measures/treatments/medications to maximize patient's quality
of life in her remaining time. As per jeffrey SERVIN's wishes, care was updated to comfort and patient was subsequently discharged to inpatient hospice.
PLAN:
ESRD refusing dialysis
Terminal Delirium
Dementia
Anemia
HTN
HLD
GERD
Anxiety/Depression
-cont comfort care medications/measures
-IM haldol prn agitation if IV unavailable, refusing PO
-IM Ativan prn agitation/anxiety if IV unavailable, refusing PO
-SC dilaudid prn mod severe pain/dyspnea if IV unavailable, refusing PO
Discussed with nurse, hospice, patient's son MALATHI Cobos
I spent a total of 55 minutes with the patient or on the floor. More than 50% of this time involved counseling and coordination of care.
[2024-02-12 18:05] VITALS: BP 176/61
--- NOTE | 2024-02-12 18:19 | PTCARENOTE ---
Patient received to unit 2N around 1750 from 4W. Patient sleeping in bed, very drowsy, has wrist restraints on, and Medsitter. Patient was moved to hospice service today. Appears comfortable at this time.
--- NOTE | 2024-02-12 19:23 | HOSPNOTE ---
Admitted as GIP for management of anxiety and agitation that could not be managed in the outside setting. receiving IV Ativan and IM Haldol. Son present at bedside to sign consents. Vocalized understanding of hospice and philosophy. Son struggling
with keeping his mother in the hospital, was hoping to get her back to a facility in [place]. Discussed that with the stopping of dialysis and all treatments patients life expectancy is limited. Son understands this. Emotional support provided. Patient
will be seen daily by hospice.
[2024-02-12 19:27] VITALS: BP 146/78
[2024-02-12] MEDS: DILAUDID 0.5 MG IV (20:09)
[2024-02-13] MEDS: HALDOL CONCENTRATE 0.5 MG SL (03:11)
[2024-02-13] MEDS: DILAUDID 0.5 MG IV ×5 (03:43→14:07)
[2024-02-13] MEDS: NSS (PRESERVATIVE FREE) 10 ML IV (07:42)
[2024-02-13] MEDS: ATIVAN 0.5 MG IV ×2 (07:42→11:14)
[2024-02-13 07:43] VITALS: BP 150/61
[2024-02-13] MEDS: NSS (PRESERVATIVE FREE) 0.25 ML IV (11:16)
--- NOTE | 2024-02-13 11:31 | W.PN.HOSP.TC ---
Today's Communication/Plan
-
see A/P
Assessment / Plan
Assessment / Plan
HPI: 73-year-old female past medical history of ESRD on hemodialysis, anemia, dementia, hypertension, hyperlipidemia, GERD, Anxiety/Depression presented from [facility] for dialysis. She had refused dialysis and missed her last 4 dialysis
sessions. Presented with Anion gap metabolic acidosis with mild hypokalemia.
Patient was confused, agitated, and refused physical exam, meds, food and pulling out her IV's.
Nephrology evaluated and assessed pt not safe to continue with dialysis given uncooperative behavior, agitated, at high risk of bleeding.
Given patient's confusion, she does not have capacity to make her own medical decisions. Goals of Care were discussed with hospice and patient's son MALATHI Cobos.
She has poor prognosis with likely terminal delirium, and likely to deteriorate soon with persistent refusal dialysis, meds, and food/water- hence appropriate for GIP hospice.
Patient's son Papito in agreement with hospice, code status change to DNR, and switch to comfort care measures. Patient was subsequently transitioned to inpatient hospice.
A/P:
# ESRD refusing dialysis
# Terminal Delirium
# Dementia
# Anemia
# HTN
# HLD
# GERD
# Anxiety/Depression
cont comfort care medications/measures for inpatient hospice
RN does not feel the pt can take PO meds at this time.
Cont meds IV or SQ (if IV becomes unavailable)
Cont haldol prn for agitation
Cont Ativan prn for agitation/anxiety
Pain control with dilaudid prn
IV Benadryl added for generalized itchiness (suspect related to uremic syndrome)
Discussed with nurse
Anticipated Discharge: Within 24 hours
Subjective/Interval History
-
Date of Service: February 13, 2024
Objective Data
-
Vital Signs:
Vital Signs
Temp Pulse Resp BP Pulse Ox
35.8 C L 63 14 150/61 93
02/13/24 07:43 02/13/24 07:43 02/13/24 07:43 02/13/24 07:43 02/13/24 07:43
I&O
02/12/24 02/13/24 02/14/24
06:59 06:59 06:59
Intake Total 100 / 100
Balance 100 / 100
[2024-02-13] MEDS: BENADRYL 25 MG IV (11:43)
[2024-02-13] MEDS: ATIVAN 2 MG IV (14:06)
[2024-02-13] MEDS: NSS (PRESERVATIVE FREE) 1 ML IV (14:07)
--- NOTE | 2024-02-13 14:21 | HOSPNOTE ---
Patient appears to be comfortable at this time. Encouraged nurses to continue to medicate for severe agitation. No family was present. Patient will be seen daily by hospice nurse. Patient continues to be inpatient hospice appropriate.
[2024-02-13] MEDS: DILAUDID 50 IV (14:32)
--- NOTE | 2024-02-13 15:14 | PTCARENOTE ---
Started Dilaudid drip on patient at around 2:30 pm. Patient is resting comfortably at this time.
--- NOTE | 2024-02-13 15:46 | CM ---
Patient is inpatient hospice. CM will remain available to family and hospice team.
[2024-02-13 19:33] VITALS: BP 124/65
[2024-02-14 07:20] VITALS: BP 78/43
--- NOTE | 2024-02-14 11:44 | W.PN.HOSP.TC ---
Today's Communication/Plan
-
see A/P
cont inpt hopsice/ comfort measures
Assessment / Plan
Assessment / Plan
HPI: 73-year-old female past medical history of ESRD on hemodialysis, anemia, dementia, hypertension, hyperlipidemia, GERD, Anxiety/Depression presented from [facility] for dialysis. She had refused dialysis and missed her last 4 dialysis
sessions. Presented with Anion gap metabolic acidosis with mild hypokalemia.
Patient was confused, agitated, and refused physical exam, meds, food and pulling out her IV's.
Nephrology evaluated and assessed pt not safe to continue with dialysis given uncooperative behavior, agitated, at high risk of bleeding.
Given patient's confusion, she does not have capacity to make her own medical decisions. Goals of Care were discussed with hospice and patient's son MALATHI Cobos.
She has poor prognosis with likely terminal delirium, and likely to deteriorate soon with persistent refusal dialysis, meds, and food/water- hence appropriate for GIP hospice.
Patient's son Papito in agreement with hospice, code status change to DNR, and switch to comfort care measures. Patient was subsequently transitioned to inpatient hospice.
A/P:
# ESRD refusing dialysis
# Terminal Delirium
# Dementia
# Anemia
# HTN
# HLD
# GERD
# Anxiety/Depression
cont comfort care medications/measures for inpatient hospice
RN does not feel the pt can take PO meds at this time.
Cont meds IV or SQ (if IV becomes unavailable)
Cont haldol prn for agitation
Cont Ativan prn for agitation/anxiety
Pain control with dilaudid drip
IV Benadryl added for generalized itchiness (suspect related to uremic syndrome)
Anticipated Discharge: Within 24 hours
Subjective/Interval History
-
Date of Service: February 14, 2024
Objective Data
-
Vital Signs:
Vital Signs
Temp Pulse Resp BP Pulse Ox
36.3 C 63 18 78/43 90
02/14/24 07:20 02/14/24 07:20 02/14/24 07:20 02/14/24 07:20 02/14/24 07:20
I&O
02/13/24 02/14/24 02/15/24
06:59 06:59 06:59
Intake Total 100 / 100 0 / 0
Balance 100 / 100 0 / 0
Review of Systems
-
Unable to obtain full review of systems at this time due to: Acuity
Physical Exam
-
General: Comfortable and Appears Chronically Ill
Respiratory: Non Labored Respirations; Negative Accessory Resp Muscle Use
Neuro: Negative Awake
Psych: Calm
--- NOTE | 2024-02-14 12:17 | HOSPNOTE ---
Recived patient sleeping in bed, patient non responsive to SN verbalization and gentle touch. Patient having periods of labored breathing. Patient appears to be comfortable.SN removed patient upper dentures as floating in mouth, Facility SN notified
placed in cup with patients name on cup. Patient repositioned during visit. Patient moaned a little when repositioned, patient opened eyes briefly after repositioning. Patient calmed by gentle touch by SN. Coordinated with SN, stated patient has
been calm during shift and has not required any breakthrough medications. Son updated after visit. Reinforced to call office with any questions or concerns, expresses understanding. Remains inpatient appropriate for management of agitation and
anxiety that could not be managed in an outside setting. Discharge planning still continues.
--- NOTE | 2024-02-14 16:05 | HOSPNOTE ---
Yael was sleeping comfortably, non-responsive. No family was present. Health Information Technologist offered words of comfort and a prayer. Will continue support through weekly visits.
[2024-02-14] MEDS: ROBINUL 0.200000000000000011 MG IV (17:56)
[2024-02-14 23:28] VITALS: BP 146/51
[2024-02-15 07:20] VITALS: BP 154/50
[2024-02-15] MEDS: DILAUDID 0.25 MG IV ×3 (08:06→16:17)
[2024-02-15] MEDS: ROBINUL 0.200000000000000011 MG IV ×2 (08:07→16:17)
[2024-02-15 08:39] VITALS: BP 154/50
--- NOTE | 2024-02-15 10:47 | PTCARENOTE ---
Addendum entered by Sara Rivers RN 02/15/24 17:49:
pt on step 2 dilaudid gtt and bag was changed this afternoon by this nurse. pt receiving prn doses as needed. see mar for proper charting.
Original Note:
pt remains on step 1 dilaudid gtt going through her L wrist access at this time for hospice measures. pt is bedbound and no longer making attempts to get out of bed or take out IV. medsitter removed from the room at this time. neck contracted so
this nurse placed rolled blanket underneath for comfort
--- NOTE | 2024-02-15 10:53 | HOSPNOTE ---
Patient is unresponsive no family present. Patient is on a morphine drip. Patient continues to be inpatient appropriate for management of agitation. Patient will be seen daily by hospice nurse.
--- NOTE | 2024-02-15 11:13 | W.PN.HOSP.TC ---
Today's Communication/Plan
-
cont hospice care
Assessment / Plan
Assessment / Plan
HPI: 73-year-old female past medical history of ESRD on hemodialysis, anemia, dementia, hypertension, hyperlipidemia, GERD, Anxiety/Depression presented from [facility] for dialysis. She had refused dialysis and missed her last 4 dialysis
sessions. Presented with Anion gap metabolic acidosis with mild hypokalemia.
Patient was confused, agitated, and refused physical exam, meds, food and pulling out her IV's.
Nephrology evaluated and assessed pt not safe to continue with dialysis given uncooperative behavior, agitated, at high risk of bleeding.
Given patient's confusion, she does not have capacity to make her own medical decisions. Goals of Care were discussed with hospice and patient's son MALATHI Cobos.
She has poor prognosis with likely terminal delirium, and likely to deteriorate soon with persistent refusal dialysis, meds, and food/water- hence appropriate for GIP hospice.
Patient's son Papito in agreement with hospice, code status change to DNR, and switch to comfort care measures. Patient was subsequently transitioned to inpatient hospice.
A/P:
# ESRD refusing dialysis
# Terminal Delirium
# Dementia
# Anemia
# HTN
# HLD
# GERD
# Anxiety/Depression
cont comfort care measures for inpatient hospice
RN does not feel the pt can take PO meds at this time.
Cont meds IV or SQ (if IV becomes unavailable)
Cont haldol prn for agitation
Cont Ativan prn for agitation/anxiety
Pain control with dilaudid drip
IV Benadryl added for generalized itchiness (suspect related to uremic syndrome)
Anticipated Discharge: 24 - 48 hours
Subjective/Interval History
-
Date of Service: February 15, 2024
Objective Data
-
Vital Signs:
Vital Signs
Temp Pulse Resp BP Pulse Ox
35.7 C L 69 16 154/50 100
02/15/24 07:20 02/15/24 07:20 02/15/24 07:20 02/15/24 07:20 02/15/24 07:20
I&O
02/14/24 02/15/24 02/16/24
06:59 06:59 06:59
Intake Total 0 / 0 0 / 0
Balance 0 / 0 0 / 0
Review of Systems
-
Unable to obtain full review of systems at this time due to: Acuity
Physical Exam
-
General: Comfortable and Appears Chronically Ill
Respiratory: Non Labored Respirations; Negative Accessory Resp Muscle Use
Neuro: Negative Awake
Psych: Calm
--- NOTE | 2024-02-15 15:15 | CM ---
Patient on inpatient hospice. CM will remain available to family and hospice team.
[2024-02-15] MEDS: ATIVAN 2 MG IV ×2 (16:16→18:38)
[2024-02-15] MEDS: NSS (PRESERVATIVE FREE) 1 ML IV ×2 (16:16→18:38)
[2024-02-15] MEDS: DILAUDID 50 IV (16:47)
[2024-02-15] MEDS: DILAUDID 0.5 MG IV ×3 (16:57→18:15)
[2024-02-15] MEDS: DILAUDID 1 MG IV (18:38)
[2024-02-15 20:17] VITALS: BP 118/42
[2024-02-16] MEDS: ROBINUL 0.200000000000000011 MG IV ×2 (00:25→04:27)
[2024-02-16] MEDS: DILAUDID 1 MG IV ×2 (00:35→06:40)
[2024-02-16 08:12] VITALS: BP 116/39
--- NOTE | 2024-02-16 10:19 | W.PN.HOSP.TC ---
Today's Communication/Plan
-
continue comfort measures
Assessment / Plan
Assessment / Plan
HPI: 73-year-old female past medical history of ESRD on hemodialysis, anemia, dementia, hypertension, hyperlipidemia, GERD, Anxiety/Depression presented from [facility] for dialysis. She had refused dialysis and missed her last 4 dialysis
sessions. Presented with Anion gap metabolic acidosis with mild hypokalemia.
Patient was confused, agitated, and refused physical exam, meds, food and pulling out her IV's.
Nephrology evaluated and assessed pt not safe to continue with dialysis given uncooperative behavior, agitated, at high risk of bleeding.
Given patient's confusion, she does not have capacity to make her own medical decisions. Goals of Care were discussed with hospice and patient's son MALATHI Cobos.
She has poor prognosis with likely terminal delirium, and likely to deteriorate soon with persistent refusal dialysis, meds, and food/water- hence appropriate for GIP hospice.
Patient's son Papito in agreement with hospice, code status change to DNR, and switch to comfort care measures. Patient was subsequently transitioned to inpatient hospice.
A/P:
# ESRD refusing dialysis
# Terminal Delirium
# Dementia
# Anemia
# HTN
# HLD
# GERD
# Anxiety/Depression
cont comfort care measures for inpatient hospice
RN does not feel the pt can take PO meds at this time.
Cont meds IV or SQ (if IV becomes unavailable)
Cont haldol prn for agitation
Cont Ativan prn for agitation/anxiety
Pain control with dilaudid drip
IV Benadryl added for generalized itchiness (suspect related to uremic syndrome)
Anticipated Discharge: Within 24 hours
Subjective/Interval History
-
Date of Service: February 16, 2024
Objective Data
-
Vital Signs:
Vital Signs
Temp Pulse Resp BP Pulse Ox
36.2 C 64 20 116/39 94
06/27/24 08:12 02/16/24 08:12 02/16/24 08:12 02/16/24 08:12 02/16/24 08:12
I&O
02/15/24 02/16/24 02/17/24
06:59 06:59 06:59
Intake Total 0 / 0 4 / 4
Output Total 0 / 0
Balance 0 / 0 /
Review of Systems
-
Unable to obtain full review of systems at this time due to: Acuity
Physical Exam
-
General: Comfortable and Appears Chronically Ill
Respiratory: Non Labored Respirations; Negative Accessory Resp Muscle Use
Neuro: Negative Awake
Psych: Calm
--- NOTE | 2024-02-16 12:14 | HOSPNOTE ---
Patient is unresponsive and appears comfortable at this time. Please continue to medicate for agiation and pain management. Patient continues to be inpatient hospice and will be seen daily by hospice nurse.
--- NOTE | 2024-02-16 14:52 | CM ---
Patient on inpatient hospice. CM will remain available to family and hospice team.
--- NOTE | 2024-02-16 19:03 | PTCARENOTE ---
Pt continues on Dilaudid drip step 3. Repositioned q2hrs. Safety and comfort measures maintained.
[2024-02-16 20:34] VITALS: BP 151/56
[2024-02-17 07:20] VITALS: BP 134/69
--- NOTE | 2024-02-17 09:40 | HOSPNOTE ---
Patient remains GIP appropriate level of care on Dilaudid continuous infusion at 1mg/hr. No prn since infusion increased to step 3. Unresponsive to verbal stimuli at this time. minimally responsive to tactile stimuli. Respirations shallow at 10 per
minute. Continue daily visits for GIP appropriate level of care, hours to days of life remaining.
--- NOTE | 2024-02-17 10:19 | W.PN.HOSP.TC ---
Today's Communication/Plan
-
see A/P
cont comfort measures
Assessment / Plan
Assessment / Plan
HPI: 73-year-old female past medical history of ESRD on hemodialysis, anemia, dementia, hypertension, hyperlipidemia, GERD, Anxiety/Depression presented from [facility] for dialysis. She had refused dialysis and missed her last 4 dialysis
sessions. Presented with Anion gap metabolic acidosis with mild hypokalemia.
Patient was confused, agitated, and refused physical exam, meds, food and pulling out her IV's.
Nephrology evaluated and assessed pt not safe to continue with dialysis given uncooperative behavior, agitated, at high risk of bleeding.
Given patient's confusion, she does not have capacity to make her own medical decisions. Goals of Care were discussed with hospice and patient's son MALATHI Cobos.
She has poor prognosis with likely terminal delirium, and likely to deteriorate soon with persistent refusal dialysis, meds, and food/water- hence appropriate for GIP hospice.
Patient's son Papito in agreement with hospice, code status change to DNR, and switch to comfort care measures. Patient was subsequently transitioned to inpatient hospice.
A/P:
# ESRD refusing dialysis
# Terminal Delirium
# Dementia
# Anemia
# HTN
# HLD
# GERD
# Anxiety/Depression
cont comfort care measures for inpatient hospice
RN does not feel the pt can take PO meds at this time.
Cont meds IV or SQ (if IV becomes unavailable)
Cont haldol prn for agitation
Cont Ativan prn for agitation/anxiety
Pain control with dilaudid drip
IV Benadryl added for generalized itchiness (suspect related to uremic syndrome)
Anticipated Discharge: Within 24 hours
Subjective/Interval History
-
Date of Service: February 17, 2024
Objective Data
-
Vital Signs:
Vital Signs
Temp Pulse Resp BP Pulse Ox
35.4 C L 77 10 134/69 90
02/17/24 07:20 02/17/24 07:20 02/17/24 07:20 02/17/24 07:20 02/17/24 07:20
I&O
02/16/24 02/17/24 02/18/24
06:59 06:59 06:59
Intake Total
Output Total 0 / 0
Balance
Review of Systems
-
Unable to obtain full review of systems at this time due to: Acuity
Physical Exam
-
General: Comfortable and Appears Chronically Ill
Respiratory: Non Labored Respirations; Negative Accessory Resp Muscle Use
Neuro: Negative Awake
Psych: Calm
[2024-02-17] MEDS: DILAUDID 50 IV (11:49)
--- NOTE | 2024-02-17 14:27 | CM ---
Patient is on inpatient hospice. CM will remain available to family and hospice team.
--- NOTE | 2024-02-17 16:30 | PTCARENOTE ---
Communicated with MD and Hospice nurse regarding the patients continued need for Dilaudid drip on step 3 since the Pt has not needed any breakthrough mediations and has no s/s of pain/discomfort while on drip. MD reordered Dilaudid drip with order
indicating to Continue currently infusing dose and titrate. New bag and tubing hung at 11:49am. Safety and comfort measures maintained.
[2024-02-17 19:41] VITALS: BP 120/47
[2024-02-18 07:00] VITALS: BP 116/41
[2024-02-18] MEDS: DILAUDID 1 MG IV (09:44)
--- NOTE | 2024-02-18 11:06 | W.PN.HOSP.TC ---
Today's Communication/Plan
-
cont comfort measures
Assessment / Plan
Assessment / Plan
HPI: 73-year-old female past medical history of ESRD on hemodialysis, anemia, dementia, hypertension, hyperlipidemia, GERD, Anxiety/Depression presented from [facility] for dialysis. She had refused dialysis and missed her last 4 dialysis
sessions. Presented with Anion gap metabolic acidosis with mild hypokalemia.
Patient was confused, agitated, and refused physical exam, meds, food and pulling out her IV's.
Nephrology evaluated and assessed pt not safe to continue with dialysis given uncooperative behavior, agitated, at high risk of bleeding.
Given patient's confusion, she does not have capacity to make her own medical decisions. Goals of Care were discussed with hospice and patient's son MALATHI Cobos.
She has poor prognosis with likely terminal delirium, and likely to deteriorate soon with persistent refusal dialysis, meds, and food/water- hence appropriate for GIP hospice.
Patient's son Papito in agreement with hospice, code status change to DNR, and switch to comfort care measures. Patient was subsequently transitioned to inpatient hospice.
A/P:
# ESRD refusing dialysis
# Terminal Delirium
# Dementia
# Anemia
# HTN
# HLD
# GERD
# Anxiety/Depression
cont comfort care measures for inpatient hospice
RN does not feel the pt can take PO meds at this time.
Cont meds IV or SQ (if IV becomes unavailable)
Cont haldol prn for agitation
Cont Ativan prn for agitation/anxiety
Pain control with dilaudid drip
IV Benadryl added for generalized itchiness (suspect related to uremic syndrome)
Anticipated Discharge: Within 24 hours
Subjective/Interval History
-
Date of Service: February 18, 2024
Objective Data
-
Vital Signs:
Vital Signs
Temp Pulse Resp BP Pulse Ox
36.6 C 76 14 116/41 100
06/29/24 07:00 02/18/24 07:00 02/18/24 07:00 02/18/24 07:00 02/18/24 10:56
I&O
02/17/24 02/18/24 02/19/24
06:59 06:59 06:59
Intake Total 0 / 0
Output Total 0 / 0
Balance 0 / 0
Review of Systems
-
Unable to obtain full review of systems at this time due to: Acuity
Physical Exam
-
General: Comfortable and Appears Chronically Ill
Respiratory: Non Labored Respirations; Negative Accessory Resp Muscle Use
Neuro: Negative Awake
Psych: Calm
--- NOTE | 2024-02-18 11:30 | HOSPNOTE ---
Recieved patient in bed sleeping, patient non responsive to SN verbalization and gentle touch. Patient mouth breathing, breathing is labored with periods of apnea. Patient appears comfortable and no non verbal signs of pain noted. Patient skin
intact. Patient lungs CTA, diminished breath sounds noted. Patient has hypoactive bowel sounds. Emotional support provided. Coordinated with SN, stated patient had one breakthrough dose of morphine after repositioning, patient appeared dyspneic. SN
states patient has been calm and sleeping. Reinforced to call office with any questions or concerns. Expresses understanding. Update to son after visit. Patient remains impatient appropriate for management of pain and anxiety that could not be
managed in an outside setting. Discharge planning continues.
--- NOTE | 2024-02-18 15:27 | CHAP ---
Yael was sleeping comfortably, non-responsive. No family present. Supervisor Dumping offered words of comfort and support at bedside, and a prayer.
--- NOTE | 2024-02-18 19:38 | W.PN.DEATH ---
Pronouncement of
-
Called to see patient to pronounce.
No spontaneous heart tones or respirations noted.
Patient not responsive to verbal stimuli.
Patient is pronounced .
Time of : 19:20
Date of : 02/18/24
Cause of : metabolic acidosis due to ESRD
Family Notified: Yes (notified son Papito Kohli over the phone )
--- NOTE | 2024-02-18 21:19 | PTCARENOTE ---
Patient's son was called as requested. He asked when patient was last seen. Was told she was seen by juan manuel RN at 1815 and upon rounding at 1900 and patient was pronounced at 1920. Condolences were expressed.
--- NOTE | 2024-02-18 21:45 | PTCARENOTE ---
Patient's belongings were tagged and sent with the [facility]. Note it included a wedding ring and an engagement ring, plus some other personal items like tennis shoes.
--- NOTE | 2024-02-19 12:31 | W.DCSUMMARY ---
Discharge Summary
Discharge Data
Date of Admission: 02/12/24
Date of Discharge: 02/18/24
-
Pending Results: No
Hospital Course
Principal Diagnosis:
End-stage renal failure refusing dialysis with terminal delirium
Chronic Diagnoses:�
Dementia
Hypertension
Hyperlipidemia
Chronic anemia
Gastroesophageal reflux disease
Anxiety/Depression
Consultations:�
Hospice service
Clinical course:�
This is a 73-year-old female, with past medical history as stated above, who presented for dialysis. She had refused outpatient dialysis and missed 4 sessions.
Goals of Care was discussed with the patient's son/MALATHI Cobos. The patient had very poor prognosis, with terminal delirium, and was expected to continue to deteriorate with persistent refusal of dialysis, medications and food/water.
The patient's son verbalized understanding and agreed to transition the patient to comfort measures/inpatient hospice.
The patient peacefully on 02/18/2024, and was pronounced at 19:20.
Her son Papito was informed over the phone.
Discharge Plan
-
Patient Disposition:
Date/Time
Date/Time: 02/18/24 19:30
Discharge Date and Time
Discharge Date/Time: 02/18/24 21:23
Print Language: HEBREW
== END 2024-02-18 21:23 | disposition expired | DRG 951 ==
LOC: 2 NORTH 16:20
PROVIDERS: ADMITTING PHYSICIAN Internal Medicine; ATTENDING PHYSICIAN Internal Medicine
DX: Z51.5 Encounter for palliative care (principal); N18.6 End stage renal disease; I12.0 Hypertensive chronic kidney disease with stage 5 chronic kidney disease or end stage renal disease; E87.20 Acidosis, unspecified; F05 Delirium due to known physiological condition; D64.9 Anemia, unspecified; F03.90 Unspecified dementia, unspecified severity, without behavioral disturbance, psychotic disturbance, mood disturbance, and anxiety; E78.5 Hyperlipidemia, unspecified; K21.9 Gastro-esophageal reflux disease without esophagitis; E87.6 Hypokalemia; R45.1 Restlessness and agitation; F41.9 Anxiety disorder, unspecified; Z66 Do not resuscitate; Z91.158 Patient's noncompliance with renal dialysis for other reason